=== PATIENT | male | born 1965 | race Caucasian/White ===

== ENCOUNTER 2018-03-28 05:30 | Day surgery (SDC) | payer MEDICARE ==
[~2018-03-28] VITALS: Ht 198.1 cm; Wt 129.0 kg
[~2018-03-28 05:30] MED LIST: AMIO400T PO; AZAT50TA PO; CYAN10009 PO; FERR1TAB22 PO; FURO40TA5 PO; METO-391 PO; OLANZAPINE PO; SULF500T8 PO
[2018-03-28] MEDS ORDERED: SODIUM CHLORIDE 0.9% 1000ML 1,000 ML IV ONE (05:52)
[2018-03-28 06:40] VITALS: BP 143/84
[2018-03-28] MEDS ORDERED: OLAN7.5T9 PO (07:05)
[2018-03-28] MEDS ORDERED: PROPOFOL 10 MG/ML 20ML VIAL IV ONE (07:13)
[2018-03-28 07:45] VITALS: BP 137/78
[2018-03-28 07:49] VITALS: BP 127/80
[2018-03-28 07:54] VITALS: BP 128/84
[2018-03-28 07:59] VITALS: BP 128/84
== END 2018-03-28 08:21 | disposition home or self-care (01) ==
LOC: ENDO 05:30 → DAH 05:30 → ENDO 08:21
PROVIDERS: ATTEND Internal Medicine
DX: K50.10 Crohn's disease of large intestine without complications (principal); K64.2 Third degree hemorrhoids; K57.30 Diverticulosis of large intestine without perforation or abscess without bleeding; K63.3 Ulcer of intestine; K52.9 Noninfective gastroenteritis and colitis, unspecified; C44.91 Basal cell carcinoma of skin, unspecified; D64.9 Anemia, unspecified; I10 Essential (primary) hypertension; C25.9 Malignant neoplasm of pancreas, unspecified; Z98.0 Intestinal bypass and anastomosis status; Z79.899 Other long term (current) drug therapy; Z95.0 Presence of cardiac pacemaker; Z98.890 Other specified postprocedural states
CPT/HCPCS: 45380; 88305; A4606; J2704; J7030